=== PATIENT | female | born 1995 | race American Indian/Alaskan Native ===

== ENCOUNTER 2016-04-06 08:36 | Emergency (ER) | payer MEDICAID ==
[2016-04-06 08:43] VITALS: BP 99/60
--- NOTE | 2016-04-06 10:34 | Emergency Department Report ---
ED General Adult HPI - General Chief complaint: Sore Throat Stated complaint: SORE THROAT/NASAL CONGESTION/BRO Time Seen by Provider: 04/06/16 09:09 Source: patient Mode of arrival: Ambulatory Limitations: No Limitations - History of Present Illness Initial comments: Patient complains of itchy and irritated throat, runny nose w/ nasal congestion , watery eye x 1 week. reports cough productive of clear sputum. Denies fever, chills, nausea, vomiting, abdominal flank pain, chest pain or discomfort, SOB, body aches, urinary symptoms. States would like refill on Valcyclovir for herpes as she ran out of her 1 year worth of rx a month ago. Denies current outbreak. Denies other acute complaints. - Related Data Previous Rx's Medication Instructions Recorded Last Taken Type Albuterol Sulfate [Ventolin HFA] 2 puff IH Q4H PRN #1 hfa.aer.ad 08/31/15 Unknown Rx Amoxicillin/K Clav Tab [Augmentin 1 tab PO Q12HR #20 tab 08/31/15 Unknown Rx 875 mg] Loratadine [Claritin] 10 mg PO DAILY #30 tablet 08/31/15 Unknown Rx Prednisone [predniSONE 10 mg 10 mg PO .TAPER #1 tab.ds.pk 08/31/15 Unknown Rx (6-Day Pack, 21 Tabs)] Promethazine /Codeine 5 ml PO Q6H PRN #150 ml 08/31/15 Unknown Rx [Phenergan/Codeine 6.25-10 mg/5 ml] Acyclovir [Zovirax Tab] 400 mg PO Q8H #30 tab 04/06/16 Unknown Rx Azithromycin [Zithromax TAB] 250 mg PO QDAY #6 tablet 04/06/16 Unknown Rx Fexofenadine/Pseudoephedrine 1 each PO QDAY #30 tab.er.12h 04/06/16 Unknown Rx [Laura-D 12 Hour Tablet] Fluticasone [Flonase] 1 spray NS QDAY #1 bottle 04/06/16 Unknown Rx Allergies Allergy/AdvReac Type Severity Reaction Status Date / Time No Known Allergies Allergy Verified 04/06/16 08:43 ED Review of Systems ROS: Stated complaint: SORE THROAT/NASAL CONGESTION/BRO Other details as noted in HPI Comment: All other systems reviewed and negative ED Past Medical Hx - Past Medical History Previous Medical History?: No Hx Seizures: Yes (been off meds with no seizures x 8years) - Surgical History Past Surgical History?: No - Social History Smoking Status: Never Smoker Substance Use Type: None - Medications Home Medications: Home Medications Medication Instructions Recorded Confirmed Last Taken Type Albuterol Sulfate [Ventolin HFA] 2 puff IH Q4H PRN #1 hfa.aer.ad 08/31/15 Unknown Rx Amoxicillin/K Clav Tab [Augmentin 1 tab PO Q12HR #20 tab 08/31/15 Unknown Rx 875 mg] Loratadine [Claritin] 10 mg PO DAILY #30 tablet 08/31/15 Unknown Rx Prednisone [predniSONE 10 mg 10 mg PO .TAPER #1 tab.ds.pk 08/31/15 Unknown Rx (6-Day Pack, 21 Tabs)] Promethazine /Codeine 5 ml PO Q6H PRN #150 ml 08/31/15 Unknown Rx [Phenergan/Codeine 6.25-10 mg/5 ml] Acyclovir [Zovirax Tab] 400 mg PO Q8H #30 tab 04/06/16 Unknown Rx Azithromycin [Zithromax TAB] 250 mg PO QDAY #6 tablet 04/06/16 Unknown Rx Fexofenadine/Pseudoephedrine 1 each PO QDAY #30 tab.er.12h 04/06/16 Unknown Rx [Laura-D 12 Hour Tablet] Fluticasone [Flonase] 1 spray NS QDAY #1 bottle 04/06/16 Unknown Rx ED Physical Exam - General Limitations: No Limitations General appearance: alert, in no apparent distress - Head Head exam: Present: atraumatic, normocephalic - Eye Eye exam: Present: normal appearance, PERRL, EOMI. Absent: scleral icterus, conjunctival injection, periorbital swelling, periorbital tenderness - ENT ENT exam: Present: mucous membranes moist, TM's normal bilaterally, normal external ear exam. Absent: normal orophraynx (cobblestoning) - Neck Neck exam: Present: normal inspection, full ROM. Absent: tenderness, meningismus, lymphadenopathy - Respiratory Respiratory exam: Present: normal lung sounds bilaterally. Absent: respiratory distress, wheezes, rales, rhonchi, stridor, chest wall tenderness, accessory muscle use, decreased breath sounds, prolonged expiratory - Cardiovascular Cardiovascular Exam: Present: regular rate, normal rhythm - GI/Abdominal GI/Abdominal exam: Present: soft. Absent: tenderness - Neurological Exam Neurological exam: Present: alert, oriented X3, normal gait, reflexes normal. Absent: motor sensory deficit - Psychiatric Psychiatric exam: Present: normal affect, normal mood - Skin Skin exam: Present: warm, dry, intact, normal color ED Course Vital Signs 04/06/16 08:41 Temperature 98.0 F Pulse Rate 80 Respiratory 16 Rate Blood Pressure 99/60 O2 Sat by Pulse 100 Oximetry Critical care attestation.: If time is entered above; I have spent that time in minutes in the direct care of this critically ill patient, excluding procedure time. ED Disposition Clinical Impression: Allergic pharyngitis Allergic rhinitis Qualifiers: Allergic rhinitis seasonality: unspecified seasonality Allergic rhinitis trigger: unspecified Qualified Code(s): J30.9 - Allergic rhinitis, unspecified Disposition: DISCHARGED TO HOME OR SELFCARE Is pt being admited?: No Does the pt Need Aspirin: No Condition: Stable Instructions: Allergic Rhinitis (ED) Prescriptions: Fexofenadine/Pseudoephedrine [Laura-D 12 Hour Tablet] 1 each PO QDAY #30 tab.er.12h Fluticasone [Flonase] 1 spray NS QDAY #1 bottle Azithromycin [Zithromax TAB] 250 mg PO QDAY #6 tablet Acyclovir [Zovirax Tab] 400 mg PO Q8H #30 tab Referrals: [facility] [Outside] - 2-3 Days PRIMARY CARE,MD [Primary Care Provider] - 2-3 Days
== END 2016-04-06 10:49 | disposition home or self-care (01) ==
LOC: ED 08:36
DX: J02.9 Acute pharyngitis, unspecified (principal); J30.9 Allergic rhinitis, unspecified
CPT/HCPCS: 99282